=== PATIENT | male | born 1990 | race Caucasian/White ===

== ENCOUNTER → 2020-12-06 | Outpatient (CLI) | payer OTHER ==
--- NOTE | 2020-12-06 14:44 | XR ---
EXAMINATION TYPE: XR hand complete RT, XR wrist complete RT DATE OF EXAM: 12/06/2020 CLINICAL HISTORY: Pain in the right thumb, years of mechanical work TECHNIQUE: Frontal, lateral and oblique images of the right wrist are obtained. COMPARISON: None FINDINGS: Right hand: There is no evidence of acute fracture or dislocation of the right hand. The distal radiu s and ulna, carpals and metacarpals and phalanges are in alignment. Soft tissues are unremarkable. No radiopaque foreign body. Right wrist: There is no evidence of fracture or dislocation of the right wrist. The distal radius an d ulna are intact. The carpals are in alignment. Proximal metacarpals are in alignment. Soft tissues are unremarkable. No radiopaque foreign body. IMPRESSION: 1. No evidence of acute fracture or dislocation of the right hand. 2. No evidence of fracture or dislocation of the right wrist.
== END | disposition home or self-care (01) ==
LOC: RADXRMAIN 14:16
PROVIDERS: ATTEND Nurse Practitioner Gerontology
DX: M25.531 Pain in right wrist (principal); M79.641 Pain in right hand

== ENCOUNTER → 2020-12-06 | Outpatient (CLI) | payer OTHER ==
--- NOTE | 2020-12-06 16:29 | US ---
EXAMINATION TYPE: US kidneys/renal and bladder DATE OF EXAM: 12/06/2020 COMPARISON: NONE CLINICAL HISTORY: Z87.442 PERSONAL HX KIDNEY STONES. Abdomen pain EXAM MEASUREMENTS: Right Kidney: 10.7 x 4.6 x 5.1 cm Left Kidney: 10.4 x 5.5 x 4.4 cm Right Kidney: No hydronephrosis or renal calculi seen Left Kidney: No hydronephrosis or renal calculi seen Bladder: wnl Bilateral Jets seen: yes There is no evidence for hydronephrosis at this point in time. No nephrolithiasis is seen. The uri nary bladder is anechoic. Bilateral ureteral jets are seen. IMPRESSION: No hydronephrosis or shadowing renal calculi.
== END | disposition home or self-care (01) ==
LOC: RADUSWWP 13:36
PROVIDERS: ATTEND Internal Medicine Geriatric Medicine
DX: R10.9 Unspecified abdominal pain (principal); Z87.442 Personal history of urinary calculi
CPT/HCPCS: 76770

== ENCOUNTER → 2024-12-05 | Outpatient (CLI) | payer OTHER ==
--- NOTE | 2024-12-05 09:58 | US ---
EXAMINATION TYPE: US abdomen complete DATE OF EXAM: 12/05/2024 COMPARISON: US 12/06/2020 CLINICAL INDICATION: Male, 34 years old with history of R10.9 UNSPECIFIED ABDOMINAL PAIN; Abdominal p ain x a few weeks TECHNIQUE: Grayscale and color Doppler imaging of the abdomen was performed. FINDINGS: EXAM MEASUREMENTS: Liver Length: 14.4 cm Gallbladder Wall: 0.2 cm CBD: 0.4 cm, color Doppler imaging was utilized to isolate the common bile duct for measurement. Spleen: 8.4 cm Right Kidney: 11.2 x 4.0 x 4.3 cm Left Kidney: 9.6 x 5.4 x 6.1 cm MANAGER PET NOTES: Pancreas: portions visualized wnl, tail obscured by bowel gas Liver: wnl, no dilated ducts, masses or cysts. Gallbladder: wnl, no stones seen Evidence for sonographic Mckinnon's sign: No CBD: wnl Spleen: wnl Right Kidney: wnl, No hydronephrosis, calculi or masses seen Left Kidney: wnl, No hydronephrosis, calculi or masses seen Upper IVC: wnl Abd Aorta: wnl Exam limited by overlying bowel gas and rib shadows. The liver is homogenous. The intrahepatic portion of the IVC and visualized abdominal aorta are with in normal limits. There is no evidence of shadowing mobile cholelithiasis. Common bile duct is unre markable. The visualized portions of the pancreas are homogenous. The spleen is unremarkable. Kidn eys are symmetric and free of hydronephrosis. No renal lesions are seen. IMPRESSION: Suboptimal study without acute finding identified. [facility], , 12/05/2024 9:56 AM
== END | disposition home or self-care (01) ==
LOC: RADUSWWP 07:53
PROVIDERS: ATTEND Internal Medicine Geriatric Medicine
DX: R10.9 Unspecified abdominal pain (principal)
CPT/HCPCS: 76700